=== PATIENT | male | born 1960 | race African-American/Black ===

== ENCOUNTER 2025-01-24 19:57 | Inpatient (IN) | payer MEDICARE, OTHER ==
[~2025-01-24] VITALS: Ht 172.7 cm; Wt 81.6 kg
[2025-01-24 21:01] LABS: BASOPHILS # (AUTO) 0.1 K/uL (0.0-0.2); BASOPHILS % (AUTO) 1.2 % (0.0-2.0); EOSINOPHILS # (AUTO) 0.3 K/uL (0.0-0.7); EOSINOPHILS % (AUTO) 2.2 % (0.0-6.0); HEMATOCRIT 47 % (39-51); LYMPHOCYTES # (AUTO) 2.9 K/uL (0.8-4.8); LYMPHOCYTES % (AUTO) 24.8 % (20.0-44.0); MEAN CORPUSCULAR HEMOGLOBIN 29 PG (26.0-33.0); MEAN CORPUSCULAR HGB CONC 34 g/dl (31.0-36.0); MEAN CORPUSCULAR VOLUME 84 fL (80-96); MONOCYTES # (AUTO) 0.8 K/uL (0.1-1.30); MONOCYTES % (AUTO) 7.1 % (2.0-12.0); NEUTROPHILS # (AUTO) 7.6 K/uL (1.8-8.9); NEUTROPHILS % (AUTO) 64.7 % (43.0-81.0); PLATELET COUNT (AUTO) 272 K/uL (150-450); RED CELL DISTRIBUTION WIDTH 13.2 % (11.5-15.0); WHITE BLOOD COUNT (AUTO) 11.8 K/uL (4.3-11.0)
[2025-01-24 21:13] LABS: CALCIUM, SERUM 9.4 mg/dL (8.5-10.1); CREATININE 1.1 mg/dL (0.6-1.3); POTASSIUM 4.2 mmol/L (3.5-5.1)
[2025-01-24 21:20] LABS: ALBUMIN 3.2 g/dL (3.4-5.0); BILIRUBIN,DIRECT 0.1 mg/dL (0.0-0.2); BILIRUBIN,TOTAL 0.3 mg/dL (0.2-1.0); SALICYLATE 2.8 mg/dL (2.8-20.0); TOTAL PROTEIN, SERUM 6.8 g/dL (6.4-8.2)
[2025-01-24 22:49] LABS: AMPHETAMINE, URINE NEGATIVE (NEGATIVE); BARBITURATE, URINE NEGATIVE (NEGATIVE); BENZODIAZEPINE, URINE NEGATIVE (NEGATIVE); CANNABINOID, URINE NEGATIVE (NEGATIVE); COCCAINE, URINE NEGATIVE (NEGATIVE); OPIATE, URINE NEGATIVE (NEGATIVE); PHENCYCLIDINE SCREEN,URINE NEGATIVE (NEGATIVE)
[2025-01-24 23:07] LABS: APPEARANCE,URINE CLEAR (CLEAR); BILIRUBIN,URINE NEGATIVE (NEGATIVE); BLOOD, URINE NEGATIVE Ery/uL (NEGATIVE); COLOR,URINE YELLOW (YELLOW); KETONES,URINE TRACE mg/dL (NEGATIVE); LEUKOCYTE ESTERASE ,URINE NEGATIVE (NEGATIVE); NITRITE, URINE NEGATIVE (NEGATIVE); PH,URINE 6.5 (5.0-8.0); PROTEIN,URINE NEGATIVE (NEGATIVE); UGLUCOSE NEGATIVE (NEGATIVE)
[2025-01-24 23:23] LABS: RBC,URINE 0-2 /HPF (0-2)
[2025-01-24 23:24] LABS: ADD URINE CULTURE NO; BACTERIA,URINE None seen /HPF (None Seen); SQUAMOUS EPITHELIAL CELL,UR None Seen /HPF (None Seen); WBC,URINE 0-2 /HPF (0-3)
[2025-01-25 03:00] VITALS: BP 125/74; TEMP 98; O2SAT 98
[2025-01-25] MEDS ORDERED: LORAZEPAM 1 MG TABLET PO PRN ×2 (03:00→03:30)
[2025-01-25] MEDS ORDERED: ACETAMINOPHEN 325 MG TABLET PO PRN (03:00)
[2025-01-25] MEDS ORDERED: MAGNESIUM HYDROXIDE 30 ML UDC PO PRN (03:00)
[2025-01-25] MEDS ORDERED: MAG HYDROX/AL HYDROX/SIMETH 30 ML UDC PO PRN (03:00)
[2025-01-25] MEDS ORDERED: ZOLPIDEM TARTRATE 5 MG TABLET PO PRN (03:00)
[2025-01-25] MEDS: BLOOD SUGAR DIAGNOSTIC 1 EACH STRIP IN ONE (03:55)
[2025-01-25 08:00] VITALS: BP 155/90; TEMP 97.9; O2SAT 98
[2025-01-25] MEDS: AMLODIPINE BESYLATE 2.5 MG TABLET PO SCH (14:20)
[2025-01-25] MEDS: LORAZEPAM 1 MG TABLET PO PRN (14:21)
[2025-01-25 16:00] VITALS: BP 132/99; TEMP 98.1; O2SAT 96
[2025-01-25] MEDS: risperiDONE 1 MG TABLET PO SCH (17:11)
[2025-01-25 20:00] VITALS: BP 127/88; TEMP 98.5; O2SAT 98
[2025-01-25] MEDS: DIVALPROEX SODIUM 125 MG CAP.SPRINK PO SCH (21:03)
[2025-01-26 07:23] LABS: BASOPHILS # (AUTO) 0.1 K/uL (0.0-0.2); BASOPHILS % (AUTO) 0.8 % (0.0-2.0); EOSINOPHILS # (AUTO) 0.2 K/uL (0.0-0.7); EOSINOPHILS % (AUTO) 2.1 % (0.0-6.0); HEMATOCRIT 42 % (39-51); HEMOGLOBIN 14.5 g/dL (13.5-17.5); LYMPHOCYTES # (AUTO) 2.6 K/uL (0.8-4.8); LYMPHOCYTES % (AUTO) 23.2 % (20.0-44.0); MEAN CORPUSCULAR HEMOGLOBIN 29 PG (26.0-33.0); MEAN CORPUSCULAR HGB CONC 34 g/dl (31.0-36.0); MEAN CORPUSCULAR VOLUME 83 fL (80-96); MONOCYTES # (AUTO) 0.9 K/uL (0.1-1.30); MONOCYTES % (AUTO) 8.1 % (2.0-12.0); NEUTROPHILS # (AUTO) 7.5 K/uL (1.8-8.9); NEUTROPHILS % (AUTO) 65.8 % (43.0-81.0); PLATELET COUNT (AUTO) 231 K/uL (150-450); RED BLOOD CELL COUNT(AUTO) 5.07 MIL/uL (4.5-6.0); RED CELL DISTRIBUTION WIDTH 13.2 % (11.5-15.0); WHITE BLOOD COUNT (AUTO) 11.3 K/uL (4.3-11.0)
[2025-01-26 07:49] LABS: CALCIUM, SERUM 8.8 mg/dL (8.5-10.1); CREATININE 1.1 mg/dL (0.6-1.3)
[2025-01-26 08:00] VITALS: BP 139/94; TEMP 97.7; O2SAT 98
[2025-01-26 16:00] VITALS: BP 130/82; TEMP 98; O2SAT 98
[2025-01-26 20:18] VITALS: BP 120/69; TEMP 98.7; O2SAT 99
[2025-01-26] MEDS: ZOLPIDEM TARTRATE 5 MG TABLET PO PRN (21:42)
[2025-01-27 08:00] VITALS: BP 155/98; TEMP 97.9; O2SAT 99
[2025-01-27 15:45] VITALS: BP 131/76; TEMP 98.8; O2SAT 98
[2025-01-27 20:08] VITALS: BP 121/63; TEMP 97.9; O2SAT 96
[2025-01-28 08:00] VITALS: BP 139/72; TEMP 97.8; O2SAT 98
[2025-01-28 16:00] VITALS: BP 129/84; TEMP 98; O2SAT 98
[2025-01-28] MEDS: risperiDONE 1 MG TABLET PO SCH (18:39)
[2025-01-28 20:05] VITALS: BP 122/53; TEMP 98.2; O2SAT 96
[2025-01-29 08:00] VITALS: BP 144/86; TEMP 98; O2SAT 97
[2025-01-29] MEDS: DIVALPROEX SODIUM 125 MG CAP.SPRINK PO SCH (13:39)
[2025-01-29 15:59] VITALS: BP 128/99; TEMP 98.2; O2SAT 97
[2025-01-29 20:02] VITALS: BP 123/62; TEMP 98.2; O2SAT 98
[2025-01-30 08:00] VITALS: BP 148/90; TEMP 97.9; O2SAT 99
[2025-01-30] MEDS: METFORMIN XR 500 MG TAB.SR.24H PO SCH (11:37)
[2025-01-30 16:00] VITALS: BP 149/78; TEMP 98.8; O2SAT 97
[2025-01-30] MEDS: risperiDONE 1 MG TABLET PO SCH (16:57)
[2025-01-30 20:20] VITALS: BP 156/92; TEMP 97.9; O2SAT 97
[2025-01-31 08:00] VITALS: BP 152/81; TEMP 97.7; O2SAT 100
[2025-01-31 16:00] VITALS: BP 155/85; TEMP 97.9; O2SAT 100
[2025-01-31 20:00] VITALS: BP 150/86; TEMP 98.1; O2SAT 100
[2025-02-01 08:00] VITALS: BP 113/81; TEMP 97.8; O2SAT 99
[2025-02-01 16:00] VITALS: BP 145/89; TEMP 98; O2SAT 94
[2025-02-01 20:13] VITALS: BP 137/80; TEMP 98; O2SAT 97
[2025-02-02 08:00] VITALS: BP 144/79; TEMP 97.7; O2SAT 100
[2025-02-02 16:00] VITALS: BP 130/84; TEMP 97.7; O2SAT 100
[2025-02-02 20:55] VITALS: BP 118/58; TEMP 98.5; O2SAT 100
[2025-02-03 08:00] VITALS: BP 140/84; TEMP 98; O2SAT 100
[2025-02-03 16:00] VITALS: BP 153/82; TEMP 97.6; O2SAT 98
[2025-02-03 20:41] VITALS: BP 134/87; TEMP 97.7; O2SAT 99
[2025-02-04 08:00] VITALS: BP 142/100; TEMP 98.2; O2SAT 96
[2025-02-04 16:00] VITALS: BP 147/58; TEMP 98; O2SAT 100
[2025-02-04 19:52] VITALS: BP 129/64; TEMP 98.6; O2SAT 100
[2025-02-05 08:00] VITALS: BP 136/98; TEMP 98.2; O2SAT 98
[2025-02-05 08:55] VITALS: BP 136/98
== END 2025-02-05 13:25 | disposition home or self-care (01) | DRG 885 ==
LOC: ER 20:05 → GPS 01-25 02:05
PROVIDERS: ADMIT Psychiatry & Neurology Psychiatry; ATTEND Internal Medicine
DX: F25.0 Schizoaffective disorder, bipolar type (principal); F03.93 Unspecified dementia, unspecified severity, with mood disturbance; F03.92 Unspecified dementia, unspecified severity, with psychotic disturbance; F03.911 Unspecified dementia, unspecified severity, with agitation; D68.59 Other primary thrombophilia; F03.94 Unspecified dementia, unspecified severity, with anxiety; F29 Unspecified psychosis not due to a substance or known physiological condition; I10 Essential (primary) hypertension; E66.9 Obesity, unspecified; E88.09 Other disorders of plasma-protein metabolism, not elsewhere classified; Z68.27 Body mass index [BMI] 27.0-27.9, adult; E11.40 Type 2 diabetes mellitus with diabetic neuropathy, unspecified; F39 Unspecified mood [affective] disorder; B35.1 Tinea unguium; L60.3 Nail dystrophy; F41.9 Anxiety disorder, unspecified
CPT/HCPCS: 36415; 80048-TC; 80061-TC; 80076-TC; 80164-TC; 81001; 82962-TC; 85025-TC; 87081-TC; 97110-TC; 97116-TC; 97530-TC; G0480